=== PATIENT | male | born 1940 | race Caucasian/White ===

== ENCOUNTER 2016-08-04 18:07 | Emergency (ER) | payer OTHER | END 2016-08-04 18:32 | disposition left against medical advice (07) | LOC: D.ER 18:07 | DX: Z02.9 Encounter for administrative examinations, unspecified (principal) ==

== ENCOUNTER 2018-03-20 09:28 | Outpatient (CLI) | payer OTHER ==
[~2018-03-20] VITALS: Ht 177.8 cm; Wt 100.0 kg
--- NOTE | ~2018-03-20 | OP ---
PATIENT NAME: JOEY HODGES MEDICAL RECORD: [id number] :36 LOCATION:D.CAT ADMISSION DATE: SURGEON: HERB ALEXANDRE MD DATE OF OPERATION: 03/20/2018 PROCEDURES: 1. PTCA stent LAD. 2. Left heart catheterization. 3. Selective coronary angiography. 4. Left ventriculogram. INDICATION: Angina and coronary artery disease. PROCEDURE IN DETAIL: After informed consent was obtained and after a detailed description of the risks, benefits as well as alternative therapies, the patient elected to proceed with angiogram and angioplasty. The right radial area was prepped and draped in normal sterile fashion. Right radial artery was cannulated via modified Seldinger technique knee with placement of 6-Hebrew sheath. All catheters exchanged through this sheath. FINDINGS: The left ventriculogram was performed in standard 30-degree ELDRIDGE view, reveals preserved cardiac wall motion, ejection fraction is 60%. SELECTIVE CORONARY ANGIOGRAPHY: 1. Left main is with no significant angiographic disease. 2. Left anterior descending has previously placed stents. Both stents have 95% in-stent restenosis. 3. Left circumflex has moderate irregularities, but no flow-limiting stenosis. 4. Right coronary has moderate irregularities, but no flow-limiting stenosis. PTCA STENT OF THE LAD: The stent used is a 3.5 x 15 proximally and a 2.25 x 26 in the mid distal vessel. Result was 0% residual stenosis. OVERALL IMPRESSION: Successful percutaneous transluminal coronary angioplasty stent of the left anterior descending going from 95% in-stent restenosis to 0% residual stenosis. TRANSINT:[id number] Voice Confirmation ID: [id number] DOCUMENT ID: [id number] HERB ALEXANDRE MD CC: [id number] DICTATION DATE: 03/20/18 1338 SEARCH ENGINE MARKETING MANAGER: 03/20/18 2206 DEP CLI 03/20/18 [place] [address]
--- NOTE | ~2018-03-20 | CN ---
PATIENT NAME:JOEY HODGES MEDICAL RECORD: [id number] : 36 LOCATION:D.CAT ADMIT DATE: ACCOUNT: [id number] CONSULTING PHYSICIAN: HERB ALEXANDRE MD REFERRING PHYSICIAN: HERB ALEXANDRE MD DATE OF CONSULTATION: 03/20/2018 ADMITTING DIAGNOSES: 1. Unstable angina. 2. Coronary artery disease. 3. Previous multivessel PTCA stent, last being 2 years ago in [facility]. 4. Hypertension. 5. Hyperlipidemia. 6. Insulin-dependent diabetes. HISTORY OF PRESENT ILLNESS: This is a gentleman with known coronary artery disease. Last cardiac intervention was 2 years ago at [facility]. He now presents with sudden onset of chest discomfort, severe this morning, took multiple sublingual nitro and morphine to relieve it. He still has low level chest discomfort. His troponin is normal. He has no acute ST-T abnormalities on his EKG. OVERALL IMPRESSION: Unstable angina. He became hypotensive when he got here. He is unstable for transport to the [facility]. We will proceed with coronary angiography here. Further care depends upon the findings of the angiography. TRANSINT:[id number] Voice Confirmation ID: [id number] DOCUMENT ID: [id number] HERB ALEXANDRE MD CC: [id number] DICTATION DATE: 03/20/18 1112 LASER SYSTEMS ENGINEER: 03/20/18 1446 [facility] [address] [place] [address]
--- NOTE | ~2018-03-20 | HEMODYNAMI ---
PATIENT:JOEY HODGES MEDICAL RECORD: [id number] : 36 LOCATION:D.CAT ADMISSION DATE: 03/20/18 Generatedon:03/20/201813:24 Patient name: JOEY HODGES Patient #: [id number] SSN: : 1940 Date of study: 03/20/2018 Page: Of Hemodynamic Procedure Report Patient Data Patient Demographics Procedure consent was obtained First Name: JOEY Gender: Male Last Name: CARROLL : 1940 Middle Initial: M Age: 78 year(s) Patient #: [id number] Race: Unknown Additional ID: [id number] Contact details Address: [address] [place] [address] State: [place] City: [place] Zip code: [address] Admission Admission Data Admission Date: 03/20/2018 Admission Time: 9:28 Lab Results Lab Result Date: 03/20/2018 Lab Result Time: 0:00 Biochemistry Name Units Result Min Max BUN mg/dl 30 --(----)-* 7 18 Creatinine mg/dl 1.8 --(----)-* 0.6 1.3 CBC Name Units Result Min Max Hemoglobin g/dl 15.8 --(--*-)-- 13.5 17.5 Procedure Procedure Types Cath Procedure Diagnostic Procedure [facility] w/Coronaries PCI Procedure Coronary Stent Coronary Stent Initial Procedure Description Procedure Date Procedure Date: 03/20/2018 Procedure Start Time: 13:05 Procedure End Time: 13:22 Procedure Staff Name Function Jose Alberto Issa MD Performing Physician Regina Andrew RT Monitor Karly Carranza RT Scrub Jeremi Sandoval RN Nurse Procedure Data Cath Procedure Fluoroscopy Diagnostic fluoroscopy Total fluoroscopy Time: 4.4 time: 4.4 min min Diagnostic fluoroscopy Total fluoroscopy dose: dose: 1121 mGy 1121 mGy Contrast Material Contrast Material Type Amount (ml) Isovue 300 98 Entry Location Entry Primary Successful Side Size Upsize Upsize Entry Closure Esparza ccessful Closure Location (Fr) 1 (Fr) 2 (Fr) Remarks Device Remarks Radial Right 6 Fr Mechanical artery Short Compression Estimated blood loss: 10 ml Diagnostic catheters Device Type Used For End Catheter Placement DIAGNOSTIC Rhodhiss 110cm 5 Procedure Fr catheter (001852) Procedure Complications No complications Procedure Medications Medication Administration Route Dosage Oxygen etCO2 Nasal cannula 2 l/min Heparin Flush Bag added to field 2 bags (1000units/500ml NS) 0.9% NaCl I.V. 100 ml/hr Radial Cocktail added to field 1 syringe (Verapomil 2mg/Nitro 400mcg/Heparin 1500units) Lidocaine 2% added to field 20 Fentanyl I.V. 50 mcg Versed I.V. 1 mg Fentanyl I.V. 50 mcg Versed I.V. 1 mg Heparin Bolus I.V. 4000 units Integrilin (Bolus I.V. 9 ml 2mg/ml) Integrilin (Bolus wasted 1 ml 2mg/ml) Radial Cocktail I.A. 1 syringe (Verapomil 2mg/Nitro 400mcg/Heparin 1500units) Plavix P.O. 600 mg Hemodynamics Rest Pre Cath Intra NCS Post Cath Vital Signs Time Heart Resp SPO2 etCO2 NIBP (mmHg) Rhythm Pain Sedation Rate (ipm) (%) (mmHg) Status Level (bpm) 12:57:18 101 17 92 41.6 108/94(106) NSR 0 (11) 10(A) , No pain 13:01:24 98 17 98 39.4 128/79(112) NSR 0 (11) 10(A) , No pain 13:05:28 98 16 96 0 96/80(92) NSR 0 (11) 10(A) , No pain 13:09:36 102 17 96 0 83/53(61) NSR 0 (11) 9(A) , No pain 13:19:50 95 16 96 0 72/59(65) NSR 0 (11) 9(A) , No pain 13:23:15 95 17 94 0 85/61(78) NSR 0 (11) 9(A) , No pain Medications Time Medication Route Dose Verified Delivered Reason Not es Effectiveness by by 12:50:13 Oxygen etCO2 2 l/min Jose Alberto Blood Nasal Luis Manuel Sandoval RN cannula 12:50:25 Heparin Flush added 2 bags Jose Alberto Blood used for Bag to Luis Manuel Sandoval RN procedure (1000units/500ml field NS) 12:50:35 0.9% NaCl I.V. 100 Jose Alberto Blood Per physician ml/hr Luis Manuel Sandoval RN 12:50:44 Radial Cocktail added 1 Jose Alberto Blood used for (Verapomil to syringe Luis Manuel Sandoval RN procedure 2mg/Nitro field 400mcg/Heparin 1500units) 12:51:02 Lidocaine 2% added 20ml Jose Alberto Blood used for to vial Luis Manuel Sandoval RN procedure field 13:06:20 Fentanyl I.V. 50 mcg Jose Alberto Blood for sedation Luis Manuel Sandoval RN 13:06:27 Versed I.V. 1 mg Jose Alberto Blood for sedation Luis Manuel Sandoval RN 13:07:28 Radial Cocktail I.A. 1 Jose Alberto Abrams for (Verapomil syringe Luis Manuel aceves 2mg/Nitro 400mcg/Heparin 1500units) 13:15:39 Fentanyl I.V. 50 mcg Jose Alberto Blood for sedation Luis Manuel Sandoval RN 13:15:44 Versed I.V. 1 mg Jose Alberto Blood for sedation Luis Manuel Sandoval RN 13:15:54 Heparin Bolus I.V. 4000 Jose Alberto Blood for units Luis Manuel Sandoval RN anticoagulation 13:16:06 Integrilin I.V. 9 ml Jose Alberto Blood for (Bolus 2mg/ml) Luis Manuel Sandoval RN antiplatelet therapy 13:16:12 Integrilin wasted 1 ml Jose Alberto Blood for (Bolus 2mg/ml) Luis Manuel Sandoval RN antiplatelet therapy 13:21:05 Plavix P.O. 600 mg Jose Alberto Blood for Luis Manuel Sandoval RN antiplatelet therapy Procedure Log Time Note 12:24:30 Time tracking: Regular hours (M-F 7:00 - 5:00) 12:24:34 Plan of Care:Hemodynamics will remain stable., Cardiac rhythm will remain stable., Comfort level will be maintained., Respiratory function will remain adequate., Patient/ family verbilizes understanding of procedure., Procedure tolerated without complication., Recovers from procedure without complications.. 12:24:36 Diagnostic Cath status Elective 12:24:37 Signed procedure consent form obtained from patient. 12:24:41 H&P Date Dictated: 03/20/2018 ER History on chart.. 12:25:23 Lab Result : BUN 30 mg/dl 12::23 Lab Result : Hemoglobin 15.8 g/dl 12::23 Lab Result : Creatinine 1.8 mg/dl 12:31:16 Regina Andrew RT(R) sent for patient. Start room use. 12:50:13 Oxygen 2 l/min etCO2 Nasal cannula was administered by Jeremi Sandoval RN; ; 12:50:25 Heparin Flush Bag (1000units/500ml NS) 2 bags added to field was administered by Jeremi Sandoval RN; used for procedure; 12:50:35 0.9% NaCl 100 ml/hr I.V. was administered by Jeremi Sandoval RN; Per physician; 12:50:44 Radial Cocktail (Verapomil 2mg/Nitro 400mcg/Heparin 1500units) 1 syringe added to field was administered by Jeremi Sandoval RN; used for procedure; 12:51:02 Lidocaine 2% 20ml vial added to field was administered by Jeremi Sandoval RN; used for procedure; 12:56:12 Patient received from ED to CCL 1 Alert and oriented. Tansferred to table in Supine position. 12:56:13 Warm blankets applied, and trip hugger turned on for patient comfort. 12:56:14 Correct patient and procedure confirmed by team. 12:56:15 ECG and BP/O2 sat monitors applied to patient. 12:56:15 Vital chart was started 12:56:34 Full Disclosure recording started 12:56:35 Pre-procedure instructions explained to patient. 12:56:36 Pre-op teaching completed and patient verbalized understanding. 12:56:37 Family unavailable. 12:57:10 Is patient on blood thinner?No 12:57:11 Patient diabetic? Yes. 12:57:21 INSULIN DEPENDENT 12:57:27 Previous problem with sedation/anesthesia? No ? 12:57:28 Snore? Yes 12:57:29 Sleep apnea? Yes 12:57:29 Deviated septum? No 12:57:30 Opens mouth fully? Yes 12:57:31 Sticks out tongue? Yes 12:57:33 Airway obstruction? No ? 12:57:36 Dentures? Yes IN TIGHT 12:57:39 Modified Jeevan's test Ulnar < 7 seconds 12:57:41 Patient pain scale 0/10 ?. 12:57:47 IV patent on arrival in left antecubital with 0.9% NaCl at [facility]. 12:57:49 Lab results completed and on chart. 12:57:52 Right Radial & Right Groin area was prepped with chlora-prep and draped in sterile fashion 12:57:53 Alarms reviewed by R. N. 12:57:53 Sharps counted by scrub and verified by R.N. 12:58:01 Use device set Radial Dx or PCI 12:58:02 ACIST Syringe (14315) opened to sterile field. 12:58:03 Bag Decanter (2002S) opened to sterile field. 12:58:04 ACIST Hand Control (13696) opened to sterile field. 12:58:04 ACIST Manifold (60061) opened to sterile field. 12:58:05 Tegaderm 4 x 4 (1626W) opened to sterile field. 12:58:07 Medline Cath Pack ([id number]) opened to sterile field. 12:58:08 DIAGNOSTIC WIRE .035 260cm J wire (007149) opened to sterile field. 12:58:08 MBrace Wrist Support ([id number]) opened to sterile field. 12:58:09 SHEATH 6FR Slender (09-7478) opened to sterile field. 13:01:31 --------ALL STOP TIME OUT------ 13:01:31 Final Timeout: patient, procedure, and site verified with staff and physician. All members of the team are in agreement. 13:01:33 Right Radial & Right Groin site verified by team. 13:01:35 Physical assessment completed. ASA score P 2 - A patient with mild systemic disease as per Jose Alberto Issa MD. 13:01:38 Sedation plan: IV Moderate Sedation Medication:Versed, Fentanyl 13:05:26 Procedure started. 13:05:32 Local anesthetic to right radial artery with Lidocaine 2% by Jose Alberto Issa MD.INITIAL ACCESS ONLY 13:06:20 Fentanyl 50 mcg I.V. was administered by Jeremi Sandoval RN; for sedation; 13:06:27 Versed 1 mg I.V. was administered by Jeremi Sandoval RN; for sedation; 13:07:16 A 6 Fr Short sheath was inserted into the Right Radial artery 13:07:28 Radial Cocktail (Verapomil 2mg/Nitro 400mcg/Heparin 1500units) 1 syringe I.A. was administered by Jose Alberto Issa MD; for vasodilation; 13:08:13 A DIAGNOSTIC Rhodhiss 110cm 5 Fr catheter (843114) was advanced over the wire and used for Procedure. 13:08:33 LV gram done using ELDRIDGE 13:08:40 Injector settings: Ml/sec: 7, Volume: 15, 13:09:37 EF : 60 % 13:10:10 RCA angiography performed. 13:10:20 Catheter exchanged over wire. 13:11:00 GUIDE 6FR XBLAD 3.5 catheter ([id number]) opened to sterile field. 13:11:17 6 Fr XBLAD 3.5 guide catheter was inserted over the wire 13:12:18 LCA angiography performed. 13:12:45 CHOICE PT Extra Support 182cm wire ([id number]) opened to sterile field. 13:12:45 INFLATOR Merit BasixCompak (YK3982) opened to sterile field. 13:13:54 CHOICE ES 182 wire advanced. 13:14:23 Wire advanced across lesion. 13:15:39 Fentanyl 50 mcg I.V. was administered by Jeremi Sandoval RN; for sedation; 13:15:44 Versed 1 mg I.V. was administered by Jeremi Sandoval RN; for sedation; 13:15:54 Heparin Bolus 4000 units I.V. was administered by Jeremi Sandoval RN; for anticoagulation; 13:16:06 Integrilin (Bolus 2mg/ml) 9 ml I.V. was administered by Jeremi Sandoval RN; for antiplatelet therapy; 13:16:12 Integrilin (Bolus 2mg/ml) 1 ml wasted was administered by Jeremi Sandoval RN; for antiplatelet therapy; 13:16:33 Place stent Inflation Number: 1 A JOSY RX 2.25 x 26 stent ([id number]) was prepped and advanced across the Mid LAD. The stent was deployed at 15 ANNMARIE for 0:10 (min:sec). 13:16:53 Stent catheter was removed intact over wire. 13:18:12 Place stent Inflation Number: 1 A JOSY RX 3.5 x 15 stent ([id number]) was prepped and advanced across the Prox LAD. The stent was deployed at 15 ANNMARIE for 0:00 (min:sec). 13:18:44 Stent catheter was removed intact over wire. 13:18:45 Wire removed. 13:18:46 Guide catheter removed. 13:18:49 Procedure ended.(Physican Out) 13:19:05 TR BAND Standard (UTH91PXI) opened to sterile field. 13:19:46 Sheath removed intact; hemostasis achieved with Mechanical Compression to the Right Radial artery. 13:21:05 Plavix 600 mg P.O. was administered by Jeremi Sandoval RN; for antiplatelet therapy; 13:21:12 Fluoroscopy time 04.40 minutes. 13:21:15 Fluoroscopy dose: 1121 mGy 13:21:15 Flurop Dose total: 1121 13:21:19 Contrast amount:Isovue 300 98ml. 13:21:22 TR band inflated with 10cc of air. 13:21:24 Post-procedure physical assessment completed. ASA score P 2 - A patient with mild systemic disease as per Jose Alberto Issa MD. 13:21:27 Post procedure rhythm: sinus rhythm 13:21:29 Estimated blood loss: 10 ml 13:21:31 Post procedure instruction explained to patient.Patient verbalizes understanding. 13:21:31 Patient needs reinforcement of post procedure teaching. 13:21:39 Procedure type changed to Cath procedure, Diagnostic procedure, LHC, LHC w/Coronaries, PCI procedure, Coronary Stent, Coronary Stent Initial 13:22:16 Procedure and supply charges have been captured, reviewed, submitted and are correct. 13:22:18 Procedure Complication : No complications 13:22:20 Vital chart was stopped 13:22:21 See physician's report for complete and final results. 13:22:22 Report given to Pre/Post Procedure Room. 13:22:24 Patient transfered to Pre/Post Procedure Room with Bed. 13:22:26 Procedure ended. 13:22:26 Full Disclosure recording stopped 13:22:29 End room use (Document Last) Intervention Summary Intervention Notes Time ActionType Lesion and Equipment Used Action# Pressure Duration Attributes 13:16:33 Place stent Mid LAD JOSY RX 2.25 x 1 15 00:10 26 stent ([id number]) 13:18:12 Place stent Prox LAD JOSY RX 3.5 x 1 15 00:00 15 stent ([id number]) Device Usage Item Name Manufacture Quantity Catalog Number Hospital Part Current M inimal Lot# / Charge Number Stock Stock Serial# Code ACIST Syringe Acist 1 47948 776484 125854 780806 2 0 (07381) Medical Systems Inc Bag Decanter Microtek 1 2001S 096042 67275 612167 5 (2001S) Medical Inc. ACIST Hand Acist 1 96492 966256 712467 667523 5 Control Medical (45610) Systems Inc ACIST Manifold Acist 1 64862 150015 316564 271057 5 (05110) Medical Systems Inc Tegaderm 4 x 4 3M 1 1626W 277634 797627 453570 5 (1626W) Medline Cath Medline 1 [id number] 911496 99503 887744 5 Pack ([id number]) DIAGNOSTIC St Raheem 1 175541 562243 158958 334226 3 0 WIRE .035 260cm J wire (381295) MBrace Wrist Advanced 1 140-0250-00 611493 60330 307810 5 Support Vascular ([id number]) Dynamics SHEATH 6FR Terumo 1 [id number] 163440 596389 721225 5 Slender (80-1060) DIAGNOSTIC Terumo 1 40-0453 121502 206060 757422 5 Rhodhiss 110cm 5 Fr catheter (373819) GUIDE 6FR Cardinal 1 [id number] 520602 674998 917622 1 0 XBLAD 3.5 Health catheter (39734317) CHOICE PT Dragoon 1 [id number] 063109 098874 398707 5 Extra Support Scientific 182cm wire ([id number]) INFLATOR Merit Merit 1 LW3807 640539 071232 656803 1 5 [employer] (MX3278) JOSY RX 2.25 x Medtronic 1 [id number] 576877 5511276 950619 5 [id number] 26 stent ([id number]) JOSY RX 3.5 x Medtronic 1 [id number] 834463 6162738 756014 5 [id number] 15 stent ([id number]) TR BAND Terumo 1 [id number] 437871 329508 632683 4 0 Standard ([id number]) Signature Audit [place] Stage Time Signature Unsigned Intra-Procedure 03/20/2018 Regina Andrew 1:24:33 PM RT(R) Signatures Monitor : Regina Andrew Signature : RT Date : Time : [address] [place] [address]
[2018-03-20 09:30] VITALS: Ht 177.8 cm; Wt 100.0 kg
[2018-03-20] MEDS ORDERED: HUMULIN 70100 UNIT/1 SC (09:31)
[2018-03-20] MEDS ORDERED: LISINOPRIL10 MG PO (09:31)
[2018-03-20] MEDS ORDERED: LOPRESSOR25 MG PO (09:31)
[2018-03-20] MEDS ORDERED: BAYER CHEWABLE81 MG PO (09:32)
[2018-03-20] MEDS ORDERED: MAG-OX 400 MG400 MG PO (09:32)
[2018-03-20] MEDS ORDERED: OMEPRAZOLE20 M1 PO (09:32)
[2018-03-20] MEDS ORDERED: COENZYME Q1030 MG PO (09:32)
[2018-03-20] MEDS ORDERED: MULTI-DAY VITAM1 TAB PO (09:33)
[2018-03-20 09:55] LABS: BASOPHILS 0.5 % (0-2); HEMATOCRIT 46.5 % (42.0-54.0); HEMOGLOBIN 15.8 g/dL (13.5-17.5); IMMATURE GRANULOCYTES 0.4 % (0-5); LYMPHOCYTES 23.9 % (15-50); MCH 30.2 pg (26.0-34.0); MCV 88.7 fL (80.0-100.0); MEAN PLATELET VOLUME 9.9 fL (7.4-10.4); NEUTROPHILS 58.2 % (40-80); PLATELET COUNT 252 10x3/uL (130-400); RBC 5.24 10x6/uL (4.20-6.10); RDW 14.8 % (11.5-14.5)
[2018-03-20 10:03] LABS: APTT 25.4 SECONDS (22.8-39.4); PROTIME 12.7 SECONDS (11.6-15.0)
[2018-03-20 10:12] LABS: ALBUMIN 3.1 g/dL (3.4-5.0); ALKALINE PHOSPHATASE 124 U/L (46-116); ALT (SGPT) 40 U/L (10-68); BILIRUBIN - TOTAL 0.41 mg/dL (0.2-1.3); CALC OSMOLALITY 296 mosm/kg (275-300); CALCIUM 8.8 mg/dL (8.5-10.1); CARBON DIOXIDE 24.8 mmol/L (21.0-32.0); CHLORIDE - SERUM 102 mmol/L (98-107); CREATININE - SERUM 1.8 mg/dL (0.6-1.3); PROTEIN - SERUM 7.2 g/dL (6.4-8.2); SODIUM 138 mmol/L (136-145); UREA NITROGEN 30 mg/dL (7-18); eGFR NON AFRICAN AMERICAN 39 mL/min (90-120)
[2018-03-20 10:17] LABS: GLUCOSE 377 mg/dL (74-106)
[2018-03-20 10:24] LABS: CKMB 2.6 U/L (0.0-3.6); CREATINE KINASE 136 UL (21-232); PRO BNP 53 pg/mL (0-450); TROPONIN-I < 0.017 ng/mL (0.000-0.060)
[2018-03-20 12:05] VITALS: BP 104/68
[2018-03-20] MEDS ORDERED: ASPIRIN81 MG PO (15:35)
[2018-03-20] MEDS ORDERED: PLAVIX75 MG PO (15:35)
== END 2018-03-20 17:50 ==
LOC: D.CATH 09:28 → D.ER 09:28 → EDSTATUS 11:21 → D.CATH 17:50
PROVIDERS: Emergency Medicine
DX: I25.110 Atherosclerotic heart disease of native coronary artery with unstable angina pectoris (principal); I10 Essential (primary) hypertension; E78.5 Hyperlipidemia, unspecified; E11.9 Type 2 diabetes mellitus without complications; Z01.812 Encounter for preprocedural laboratory examination

== ENCOUNTER 2018-05-04 20:18 | Emergency (ER) | payer OTHER ==
[~2018-05-04] VITALS: Ht 177.8 cm; Wt 95.5 kg
[~2018-05-04 20:18] MED LIST: ASPIRIN81 MG PO; BAYER CHEWABLE81 MG PO; COENZYME Q1030 MG PO; HUMULIN 70100 UNIT/1 SC; LISINOPRIL10 MG PO; LOPRESSOR25 MG PO; MAG-OX 400 MG400 MG PO; MULTI-DAY VITAM1 TAB PO; OMEPRAZOLE20 M1 PO; PLAVIX75 MG PO
[2018-05-04 20:30] VITALS: Ht 177.8 cm; Wt 95.5 kg
[2018-05-04 21:43] VITALS: BP 103/59
== END 2018-05-04 21:44 | disposition home or self-care (01) ==
LOC: D.ER 20:18
DX: R33.9 Retention of urine, unspecified (principal); E11.9 Type 2 diabetes mellitus without complications; I10 Essential (primary) hypertension

== ENCOUNTER 2019-07-30 10:46 | Emergency (ER) | payer OTHER ==
[~2019-07-30] VITALS: Ht 177.8 cm; Wt 99.5 kg
[2019-07-30 10:58] VITALS: Ht 177.8 cm; Wt 99.5 kg
[2019-07-30 11:36] LABS: APTT 26.8 SECONDS (22.8-39.4); CALC OSMOLALITY 290 mosm/kg (275-300); CALCIUM 8.8 mg/dL (8.5-10.1); CARBON DIOXIDE 21.9 mmol/L (21.0-32.0); CHLORIDE - SERUM 104 mmol/L (98-107); CREATININE - SERUM 1.7 mg/dL (0.6-1.3); GLUCOSE 344 mg/dL (74-106); INR 1.02 (0.85-1.17); POTASSIUM - SERUM 4.1 mmol/L (3.5-5.1); PROTIME 13.3 SECONDS (11.6-15.0); SODIUM 137 mmol/L (136-145); UREA NITROGEN 21 mg/dL (7-18); eGFR NON AFRICAN AMERICAN 41 mL/min (90-120)
[2019-07-30 11:43] LABS: HEMATOCRIT 44.5 % (42.0-54.0); HEMOGLOBIN 14.5 g/dL (13.5-17.5); LYMPHOCYTES 14.8 % (15-50); MCH 28.5 pg (26.0-34.0); MCHC 32.6 g/dL (31.0-37.0); MCV 87.6 fL (80.0-100.0); MEAN PLATELET VOLUME 9.6 fL (7.4-10.4); PLATELET COUNT 280 10x3/uL (130-400); RBC 5.08 10x6/uL (4.20-6.10); RDW 15.9 % (11.5-14.5); WBC 7.3 10x3/uL (4.8-10.8)
[2019-07-30 11:53] LABS: ALKALINE PHOSPHATASE 115 U/L (30-120); ALT (SGPT) 35 U/L (10-68); BILIRUBIN - TOTAL 0.39 mg/dL (0.2-1.3); CKMB 1.6 U/L (0.0-3.6); CREATINE KINASE 103 UL (21-232); MAGNESIUM - SERUM 1.7 mg/dL (1.8-2.4); PRO BNP 271 pg/mL (0-450); PROTEIN - SERUM 6.9 g/dL (6.4-8.2)
[2019-07-30 16:10] VITALS: BP 127/730
== END 2019-07-30 16:11 | disposition other institution (70) ==
LOC: D.ER 10:46
PROVIDERS: Family Medicine
DX: R07.9 Chest pain, unspecified (principal); I25.10 Atherosclerotic heart disease of native coronary artery without angina pectoris; E11.9 Type 2 diabetes mellitus without complications; I10 Essential (primary) hypertension; I25.2 Old myocardial infarction; K21.9 Gastro-esophageal reflux disease without esophagitis; Z79.4 Long term (current) use of insulin; R06.02 Shortness of breath

== ENCOUNTER 2020-01-06 09:17 | Emergency (ER) | payer OTHER ==
[~2020-01-06] VITALS: Ht 177.8 cm; Wt 102.3 kg
[2020-01-06 09:23] VITALS: Ht 177.8 cm; Wt 102.3 kg
[2020-01-06 11:06] LABS: BASOPHILS 0.4 % (0-2); EOSINOPHILS 6.7 % (0-7); HEMATOCRIT 40.8 % (42.0-54.0); HEMOGLOBIN 12.9 g/dL (13.5-17.5); IMMATURE GRANULOCYTES 0.1 % (0-5); LYMPHOCYTES 19.1 % (15-50); MCH 27.5 pg (26.0-34.0); MCHC 31.6 g/dL (31.0-37.0); MONOCYTES 8.7 % (2-11); PLATELET COUNT 254 10x3/uL (130-400); RBC 4.69 10x6/uL (4.20-6.10); RDW 15.3 % (11.5-14.5); WBC 7.7 10x3/uL (4.8-10.8)
[2020-01-06 11:07] LABS: CALC OSMOLALITY 288 mosm/kg (275-300); CARBON DIOXIDE 25.8 mmol/L (21.0-32.0); CHLORIDE - SERUM 106 mmol/L (98-107); CREATININE - SERUM 1.4 mg/dL (0.6-1.3); POTASSIUM - SERUM 4.3 mmol/L (3.5-5.1); SODIUM 142 mmol/L (136-145); UREA NITROGEN 26 mg/dL (7-18); eGFR NON AFRICAN AMERICAN 52 mL/min (90-120)
[2020-01-06 11:08] LABS: GLUCOSE 108 mg/dL (74-106)
[2020-01-06 11:22] LABS: ALBUMIN 3.2 g/dL (3.4-5.0); ALKALINE PHOSPHATASE 90 U/L (30-120); ALT (SGPT) 27 U/L (10-68); BILIRUBIN - TOTAL 0.42 mg/dL (0.2-1.3); CKMB 2.3 U/L (0.0-3.6); CREATINE KINASE 205 UL (21-232); PRO BNP 311 pg/mL (0-450)
[2020-01-06 11:25] LABS: TROPONIN-I 0.016 ng/mL (0.000-0.060)
[2020-01-06 11:53] LABS: INR 1.03 (0.85-1.17); PROTIME 13.4 SECONDS (11.6-15.0)
[2020-01-06 11:54] LABS: APTT 28.3 SECONDS (22.8-39.4)
[2020-01-06 16:17] VITALS: BP 136/87
== END 2020-01-06 16:51 | disposition other institution (70) ==
LOC: D.ER 09:17
PROVIDERS: Family Medicine
DX: R07.9 Chest pain, unspecified (principal); R06.00 Dyspnea, unspecified; I10 Essential (primary) hypertension; E11.9 Type 2 diabetes mellitus without complications; F17.200 Nicotine dependence, unspecified, uncomplicated; Z79.4 Long term (current) use of insulin

== ENCOUNTER 2020-08-14 10:57 | Emergency (ER) | payer OTHER ==
[~2020-08-14] VITALS: Ht 172.7 cm; Wt 104.5 kg
[~2020-08-14 10:57] MED LIST changes: +ALBUTEROL SULF8.5 GM INH
[2020-08-14 10:58] VITALS: Ht 172.7 cm; Wt 104.5 kg
[2020-08-14] MEDS ORDERED: HUMULIN 70100 UNIT/1 SC (11:21)
[2020-08-14] MEDS ORDERED: HUMULIN R100 UNIT/1 SC (11:23)
[2020-08-14 11:44] LABS: EOSINOPHILS 4.9 % (0-7); HEMATOCRIT 40.2 % (42.0-54.0); HEMOGLOBIN 12.8 g/dL (13.5-17.5); LYMPHOCYTES 16.8 % (15-50); MCH 25.5 pg (26.0-34.0); MCHC 31.9 g/dL (31.0-37.0); MCV 80.1 fL (80.0-100.0); MEAN PLATELET VOLUME 7.8 fL (7.4-10.4); MONOCYTES 10.2 % (2-11); NEUTROPHILS 67.1 % (40-80); PLATELET COUNT 292 10x3/uL (130-400); RBC 5.01 10x6/uL (4.20-6.10); RDW 18.1 % (11.5-14.5); WBC 8.4 10x3/uL (4.8-10.8)
[2020-08-14 11:55] LABS: ANION GAP 14.8 mmol/L (8-16); CALCIUM 9.2 mg/dL (8.5-10.1); CARBON DIOXIDE 24.4 mmol/L (21.0-32.0); CREATININE - SERUM 2.2 mg/dL (0.6-1.3); POTASSIUM - SERUM 4.2 mmol/L (3.5-5.1)
[2020-08-14 12:09] LABS: BILIRUBIN - TOTAL 0.33 mg/dL (0.2-1.3); MAGNESIUM - SERUM 1.9 mg/dL (1.8-2.4); PROTEIN - SERUM 6.9 g/dL (6.4-8.2); TROPONIN-I 0.019 ng/mL (0.000-0.060)
[2020-08-14 17:55] VITALS: BP 122/75
== END 2020-08-14 17:35 | disposition other institution (70) ==
LOC: D.ER 10:57
PROVIDERS: Emergency Medicine
DX: I25.119 Atherosclerotic heart disease of native coronary artery with unspecified angina pectoris (principal); E11.9 Type 2 diabetes mellitus without complications; R06.09 Other forms of dyspnea; I25.5 Ischemic cardiomyopathy; I10 Essential (primary) hypertension; Z79.4 Long term (current) use of insulin; R07.9 Chest pain, unspecified